=== PATIENT | male | born 1965 | race African-American/Black ===

== ENCOUNTER 2018-09-22 16:57 | Emergency (ER) | payer MEDICARE, MEDICAID ==
[~2018-09-22] VITALS: Ht 175.3 cm; Wt 84.0 kg
[2018-09-22] MEDS ORDERED: ACETAMINOPHEN 325MG TABLET PO ONE (23:15)
[2018-09-22 23:34] LABS: BASOPHILS % 0.5 % (0.0-2.0); EOSINOPHILS % 1.4 % (0.0-5.0); HEMATOCRIT. 37.1 % (42.0-52.0); HEMOGLOBIN. 12.5 g/dL (14.0-18.0); LYMPHOCYTES % 30.6 % (20.0-50.0); MEAN CORPUSCULAR HEMOGLOBIN 29.6 pg (28.0-32.0); MEAN CORPUSCULAR VOLUME 87.7 fL (80.0-94.0); MEAN PLATELET VOLUME 9.5 fl (7.4-10.4); MONOCYTES % 5.9 % (2.0-8.0); NEUTROPHILS % 61.6 % (40.0-76.0); PLATELET 190 x1000/uL (130-400); RED BLOOD CELL COUNT 4.23 mill/uL (4.7-6.1); RED CELL DISTRIBUTION WIDTH 15.1 % (11.6-14.6)
[2018-09-22 23:38] LABS: CHLORIDE 103 mEq/L (98-107)
[2018-09-23] MEDS ORDERED: POTASSIUM CHLORIDE 20MEQ TABLET SR PO ONE (00:30)
[2018-09-23 05:00] VITALS: BP 126/72
== END 2018-09-23 05:05 | disposition home or self-care (01) ==
LOC: ER 17:05
DX: E87.6 Hypokalemia (principal); R51 Headache; R06.02 Shortness of breath; J45.909 Unspecified asthma, uncomplicated; E11.9 Type 2 diabetes mellitus without complications; E78.00 Pure hypercholesterolemia, unspecified; I10 Essential (primary) hypertension; Z90.49 Acquired absence of other specified parts of digestive tract
CPT/HCPCS: 36415; 71045; 83880; 84484; 93005; 99284

== ENCOUNTER 2018-11-22 19:41 | Emergency (ER) | payer MEDICARE ==
[~2018-11-22] VITALS: Ht 177.8 cm; Wt 84.0 kg
[2018-11-23] MEDS ORDERED: KETOROLAC 15MG/ML VIAL IM ONE (00:30)
[2018-11-23 00:34] VITALS: BP 131/86
== END 2018-11-23 01:25 | disposition home or self-care (01) ==
LOC: ER 19:41
DX: S90.821A Blister (nonthermal), right foot, initial encounter (principal); M79.672 Pain in left foot; M79.671 Pain in right foot; I11.0 Hypertensive heart disease with heart failure; I50.9 Heart failure, unspecified; J45.909 Unspecified asthma, uncomplicated; F20.9 Schizophrenia, unspecified; E78.00 Pure hypercholesterolemia, unspecified; E11.9 Type 2 diabetes mellitus without complications; Z91.14 Patient's other noncompliance with medication regimen; Z90.49 Acquired absence of other specified parts of digestive tract; X58.XXXA Exposure to other specified factors, initial encounter; Y93.89 Activity, other specified; Y92.89 Other specified places as the place of occurrence of the external cause; Y99.8 Other external cause status
CPT/HCPCS: 96372; 99283; J1885

== ENCOUNTER 2019-04-19 01:18 | Emergency (ER) | payer MEDICARE ==
[~2019-04-19] VITALS: Ht 175.3 cm; Wt 83.0 kg
[2019-04-19] MEDS ORDERED: KETOROLAC 30MG/ML VIAL IM ONE (02:30)
[2019-04-19 03:36] VITALS: BP 117/57
== END 2019-04-19 03:38 | disposition home or self-care (01) ==
LOC: ER 01:18
DX: S30.0XXA Contusion of lower back and pelvis, initial encounter (principal); S40.011A Contusion of right shoulder, initial encounter; J45.909 Unspecified asthma, uncomplicated; I10 Essential (primary) hypertension; W01.0XXA Fall on same level from slipping, tripping and stumbling without subsequent striking against object, initial encounter; Y93.89 Activity, other specified; Y92.89 Other specified places as the place of occurrence of the external cause; Y99.8 Other external cause status
CPT/HCPCS: 96372; 99283; J1885

== ENCOUNTER 2019-06-16 22:23 | Emergency (ER) | payer MEDICARE ==
[~2019-06-16] VITALS: Ht 185.4 cm; Wt 81.0 kg
[2019-06-17 04:44] VITALS: BP 121/75
== END 2019-06-17 05:01 | disposition home or self-care (01) ==
LOC: ER 22:23
DX: S93.401A Sprain of unspecified ligament of right ankle, initial encounter (principal); I10 Essential (primary) hypertension; J45.909 Unspecified asthma, uncomplicated; X58.XXXA Exposure to other specified factors, initial encounter; Y93.89 Activity, other specified; Y92.89 Other specified places as the place of occurrence of the external cause
CPT/HCPCS: 99283

== ENCOUNTER 2019-07-15 03:46 | Emergency (ER) | payer MEDICARE ==
[~2019-07-15] VITALS: Ht 182.9 cm; Wt 82.0 kg
[2019-07-15 04:24] VITALS: BP 140/90
[2019-07-15] MEDS ORDERED: IBUPROFEN 600MG TABLET PO ONE (04:30)
== END 2019-07-15 05:46 | disposition home or self-care (01) ==
LOC: ER 03:46
DX: S90.111A Contusion of right great toe without damage to nail, initial encounter (principal); I10 Essential (primary) hypertension; Y04.0XXA Assault by unarmed brawl or fight, initial encounter; Y93.89 Activity, other specified; Y92.89 Other specified places as the place of occurrence of the external cause
CPT/HCPCS: 73660; 99283

== ENCOUNTER 2021-07-23 00:27 | Emergency (ER) | payer MEDICARE ==
[~2021-07-23] VITALS: Ht 172.7 cm; Wt 97.0 kg
[2021-07-23] MEDS ORDERED: IPRATROPIUM BROMIDE (0.02%) 0.5MG/2.5ML NEB HHN STA (03:55)
[2021-07-23] MEDS ORDERED: ALBUTEROL (0.083%) 2.5MG/3ML NEB HHN STA (03:55)
[2021-07-23 05:00] VITALS: BP 133/84
== END 2021-07-23 05:05 | disposition home or self-care (01) ==
LOC: ER 00:27
DX: J45.909 Unspecified asthma, uncomplicated (principal); R07.89 Other chest pain; I10 Essential (primary) hypertension; Z90.49 Acquired absence of other specified parts of digestive tract
CPT/HCPCS: 93005; 94640; 99283

== ENCOUNTER 2021-09-22 15:59 | Emergency (ER) | payer OTHER, MEDICAID ==
[~2021-09-22] VITALS: Ht 175.3 cm; Wt 100.0 kg
[2021-09-22 16:04] VITALS: BP 134/90
== END 2021-09-22 17:30 | disposition left against medical advice (07) ==
LOC: ER 15:59
DX: Z53.21 Procedure and treatment not carried out due to patient leaving prior to being seen by health care provider (principal)

== ENCOUNTER 2021-09-23 15:25 | Inpatient (IN) | payer MEDICARE, MEDICAID ==
[~2021-09-23] VITALS: Ht 152.4 cm; Wt 95.7 kg
[2021-09-23] MEDS ORDERED: IBUPROFEN 400MG TABLET PO ONE (21:45)
[2021-09-23 22:01] LABS: BASOPHILS % 0.6 % (0.0-2.0); EOSINOPHILS % 1.5 % (0.0-5.0); HEMATOCRIT. 38.3 % (42.0-52.0); HEMOGLOBIN. 12.6 g/dL (14.0-18.0); MEAN CORPUSCULAR HEMOGLOBIN 28.9 pg (28.0-32.0); MEAN CORPUSCULAR VOLUME 87.6 fL (80.0-94.0); MONOCYTES % 6.1 % (2.0-8.0); NEUTROPHILS % 54.8 % (40.0-76.0); PLATELET 232 x1000/uL (130-400); RED BLOOD CELL COUNT 4.38 mill/uL (4.7-6.1)
[2021-09-23 22:08] LABS: CHLORIDE 99 mEq/L (98-107)
[2021-09-23 22:40] LABS: CLARITY URINE CLEAR (CLEAR); COLOR URINE YELLOW (YELLOW); KETONES URINE TRACE (NEGATIVE); LEUKOCYTE ESTERASE URINE NEGATIVE (NEGATIVE); NITRITE URINE NEGATIVE (NEGATIVE); OCCULT BLOOD URINE NEGATIVE (NEGATIVE); PH URINE 5.5 (4.5-8.0); PROTEIN URINE TRACE (NEGATIVE)
[2021-09-24] MEDS ORDERED: POTASSIUM CHLORIDE 20MEQ/PACKET PO ONE
[2021-09-24] MEDS ORDERED: KCL 20MEQ/100ML PREMIX 100 ML IV ONE (00:30)
[2021-09-24] MEDS ORDERED: MAGNESIUM 1 G PREMIX 100 ML IV ONE (00:30)
[2021-09-24 11:42] VITALS: BP 119/71
[2021-09-24 12:00] VITALS: BP 122/67
[2021-09-24] MEDS ORDERED: ONDANSETRON HCL 4MG/2ML INJ IV PRN (12:30)
[2021-09-24] MEDS: DOCUSATE SODIUM 250MG CAPSULE PO SCH (12:30)
[2021-09-24] MEDS ORDERED: ACETAMINOPHEN 325MG TABLET PO PRN (12:30)
[2021-09-24 16:00] VITALS: BP 123/78
[2021-09-24] MEDS ORDERED: POTASSIUM CHLORIDE 20MEQ TABLET SR PO NR ×3 (18:30→21:30)
[2021-09-24 20:00] VITALS: BP 120/79
[2021-09-25] VITALS: BP 141/76
[2021-09-25] MEDS ORDERED: POTASSIUM CHLORIDE 20MEQ TABLET SR PO NR (01:00)
[2021-09-25 04:00] VITALS: BP 125/83
[2021-09-25 07:47] VITALS: BP 122/77
[2021-09-25 08:44] LABS: BASOPHILS % 0.7 % (0.0-2.0); EOSINOPHILS % 1.3 % (0.0-5.0); HEMATOCRIT. 36.3 % (42.0-52.0); HEMOGLOBIN. 11.8 g/dL (14.0-18.0); LYMPHOCYTES % 39.6 % (20.0-50.0); MEAN CORPUSCULAR HEMOGLOBIN 28.8 pg (28.0-32.0); MEAN CORPUSCULAR VOLUME 88.7 fL (80.0-94.0); MEAN PLATELET VOLUME 9.3 fl (7.4-10.4); NEUTROPHILS % 51.4 % (40.0-76.0); PLATELET 202 x1000/uL (130-400); RED BLOOD CELL COUNT 4.09 mill/uL (4.7-6.1); RED CELL DISTRIBUTION WIDTH 14.9 % (11.6-14.6)
[2021-09-25 09:06] LABS: CHLORIDE 105 mEq/L (98-107)
[2021-09-25 09:13] LABS: CREATINE KINASE 387 IU/L (39-308)
[2021-09-25] MEDS: DOCUSATE SODIUM 250MG CAPSULE PO SCH (10:01)
[2021-09-25 12:00] VITALS: BP 130/78
[2021-09-25 16:00] VITALS: BP 126/72
[2021-09-25 19:52] LABS: CREATINE KINASE 419 IU/L (39-308)
[2021-09-25 20:00] VITALS: BP 128/92
[2021-09-25 21:46] LABS: *AMPHETAMINES SCREEN URINE NEGATIVE (NEGATIVE); *BARBITURATES SCREEN URINE NEGATIVE (NEGATIVE); *BENZODIAZEPINES SCREEN URINE NEGATIVE (NEGATIVE); *COCAINE SCREEN URINE NEGATIVE (NEGATIVE); CANNABINOID URINE SCREEN NEGATIVE (NEGATIVE); METHADONE URINE SCREEN NEGATIVE (NEGATIVE); OPIATES URINE SCREEN NEGATIVE (NEGATIVE); PHENCYCLIDINE URINE SCREEN NEGATIVE (NEGATIVE)
[2021-09-26] VITALS: BP 124/84
[2021-09-26 04:00] VITALS: BP 132/86
[2021-09-26 07:55] VITALS: BP 143/104
[2021-09-26] MEDS: DOCUSATE SODIUM 250MG CAPSULE PO SCH (08:03)
[2021-09-26] MEDS ORDERED: HYDR25TA PO (10:22)
[2021-09-26] MEDS ORDERED: AMLO10TA4 PO (10:22)
[2021-09-26] MEDS ORDERED: AMLODIPINE 10MG TABLET PO SCH (10:30)
== END 2021-09-26 13:40 | disposition left against medical advice (07) | DRG 641 ==
LOC: ER 15:25 → 6WST 09-24 03:02
PROVIDERS: ADMIT Internal Medicine; ATTEND Internal Medicine
DX: E87.6 Hypokalemia (principal); I10 Essential (primary) hypertension; D64.9 Anemia, unspecified; J45.909 Unspecified asthma, uncomplicated; D72.819 Decreased white blood cell count, unspecified; E86.0 Dehydration; R74.8 Abnormal levels of other serum enzymes
CPT/HCPCS: 36415; 71045; 80048; 80053; 80305; 81003; 82550; 83735; 84132; 85025; 93005; 97161; 97162; 99285; J3475; J3480